=== PATIENT | female | born 1960 | race Caucasian/White ===

== ENCOUNTER → 2018-03-31 15:53 | Outpatient (CLI) | payer BC, SELFPAY ==
--- NOTE | 2018-03-31 16:01 | MM_ITS ---
MM Dig screening mamm BI w/CAD ORDERING PHYSICIAN : Bhargavi Han PATIENT AGE: 57 years GENDER: Female COMPARISON: August 2009, December 2011, April 2013 & 2014 INDICATION: Routine: SCREENING no hormones. No new complaints. Family history:. Paternal great grandmother with breast cancer TECHNIQUE: Standard CC and MLO images were obtained. R2 CAD reviewed. FINDINGS: . Diffuse fatty change with Low-density breast bilaterally. No suspicious nor dominant mass. No suspicious calcifications . No architectural distortion. RIGHT BREAST:No significant new findings Spherical dense benign calcification the medial right breast LEFT BREAST:No new areas of significant concern. Overlapping vessel seen at inferior left breast appear to account for appearance here. IMPRESSION: . . No new findings of significant concern. Overall Stable bilateral mammogram Bilateral follow-up in one year recommended. BI-RADS Category: 2 Benign Finding(s) RECOMMENDED FOLLOW-UP: 1YR 1 YEAR FOLLOW-UP (A letter has been sent to the patient regarding results of the study.)
== END ==
PROVIDERS: PCP Nurse Practitioner Family; Visit Provider Nurse Practitioner Family
DX: Z12.31 Encounter for screening mammogram for malignant neoplasm of breast (principal)
CPT/HCPCS: 77067

== ENCOUNTER → 2019-10-06 09:40 | Outpatient (CLI) | payer BC, SELFPAY | PROVIDERS: PCP Family Medicine; Visit Provider Nurse Practitioner Family | DX: Z03.818 Encounter for observation for suspected exposure to other biological agents ruled out (principal) | CPT/HCPCS: U0003 ==

== ENCOUNTER → 2020-03-26 09:39 | Outpatient (CLI) | payer BC, SELFPAY ==
--- NOTE | 2020-03-26 09:41 | MM_ITS ---
PROCEDURE: MM DIG SCREENING MAMM BI W/CAD Referring Doctor: Kristina Guajardo Patient Age:59Y CLINICAL INDICATION: SCREENING 59-year-old. No hormones but no new complaints Family history paternal grandmother with breast cancer COMPARISON: MG MM MOBILE MAMMO DIGITAL SCREEN W CAD NAKUL from 04/26/2013 MG MM MOBILE MAMMO DIGITAL SCREEN W CAD NAKUL from 04/25/2014 MG DMDB DIG MAMM-DX NAKUL from 05/03/2015 MG SCBI MM Dig screening mamm BI w/CAD from 03/31/2018 TECHNIQUE: Standard CC and MLO images were obtained. R2 CAD reviewed. Bilateral digital breast tomosynthesis included. Additional nipple profile view left breast included FINDINGS: . Low-density breast with generalized fatty replacement.-. Low-density breast facilitate mammography screening. No new areas of significant concern either breast, no dominant or suspicious mass. No suspicious calcifications. CAD highlights no areas of significant concern either. Dense benign-appearing calcifications again seen medial right breast suspect related to a collapsed oil cyst No significant new features right nor left breast IMPRESSION: Stable mammogram with no new areas of concern. . Low-density breast/generalized fatty replacement . Bilateral follow-up 1 year recommended BI-RAD Category: 1 Negative FOLLOW-UP: 1YR 1 Year Follow-up (A letter has been sent to the patient regarding results of the study.) Dictated by: Ej Frausto MD 03/27/2020 10:10 Ej Frausto MD in [place] 03/27/2020 10:10
== END ==
PROVIDERS: PCP Family Medicine; Visit Provider Family Medicine
DX: Z12.31 Encounter for screening mammogram for malignant neoplasm of breast (principal)
CPT/HCPCS: 77063; 77067

== ENCOUNTER → 2020-04-25 10:00 | Outpatient (CLI) | payer BC, SELFPAY ==
--- NOTE | 2020-04-25 10:06 | US_ITS ---
PROCEDURE: US EXTREMITY RT LIMITED CLINICAL INDICATION: LUMP OF SKIN OF BOTH EXTREMITIES COMPARISON: No exams were available for comparison FINDINGS: Ultrasound is performed palpable areas in the right forearm and upper humerus as well as the left anterior forearm upper humerus.. The areas imaged show mostly homogeneous echogenicity consistent with fatty tissue/lipomas. No cystic lesions or other types of masses evident. IMPRESSION: Multiple bilateral palpable areas are interrogated with ultrasound in the arm and forearm consistent with multiple lipomas or prominent fatty tissue Dictated by: Colton Flores MD 04/25/2020 15:26 Colton Flores MD in [place] 04/25/2020 15:26
== END ==
PROVIDERS: PCP Family Medicine; Visit Provider Nurse Practitioner Family
DX: R22.33 Localized swelling, mass and lump, upper limb, bilateral (principal)
CPT/HCPCS: 76882

== ENCOUNTER → 2020-05-14 12:43 | Outpatient (CLI) | payer BC, SELFPAY ==
--- NOTE | 2020-05-14 12:43 | CA_ITS ---
APPROVED REPORT EXAM: Comprehensive 2D, Doppler, and color-flow Echocardiogram Program Evaluation Consultant: Millie Cortes RT(R) Ht: 5 ft 6 in Wt: 298lbs BSA: 2.37 BP: 138/84 mmHg Indications: ex smoker, palpitations, HTN, DM, SOB, hyperlipidemia, palpitations, SARAH 2D Dimensions LVOT 2.16 cm (M/F) 1.5-2.5 LVEF (Allen's) 67.00 % F: 54 - 74 LV Volume 125.00 mL F: 46 - 106 LV Volume Index 52.74 mL/m2 F: 29 - 61 M-Mode Dimensions RVDd 3.22 cm (0.9-2.6) LA Diam 4.09 cm (1.9-4.0) LVDd 4.71 cm (3.5-5.7) Ao Diam 2.94 cm (2.0-3.7) LVDs 3.61 cm (3.5-5.7) IVSd 0.64 cm (0.6-1.1) PWd 0.85 cm (0.6-1.1) EF (Teich) 46.70% FS 23.40% EDV (Teich) 102.90 mL ESV (Teich) 54.80 mL LV Diastology E Decel Time 273.00 (160-240 msec) E/A Ratio 1.1 MED E' 9.30 (< 7 cm/sec) E'/MED E' Ratio 9.98 (>14) LAT E' 12.10 (<10 cm/sec) E/LAT E' Ratio 7.67 (>14) Mitral Valve MV E Max Julio. 93.00 (40-130 cm/s) MV A Velocity 88.00 (40-130 cm/s) E/A Ratio 1.05 MV Decel. Time 273.00 (160-240 ms) MV PHT 80.00 ms Tricuspid Valve TR P. Velocity 239.00 cm/s RAP Estimate 10.00 mmHg RVSP 32.90 mmHg Left Ventricle Left atrium is mildly enlarged, left ventricle is normal size, mild concentric left ventricular hypertrophy, visually estimated ejection fraction 55% with no regional wall motion abnormality, grade 1 diastolic dysfunction seen without tissue Doppler evidence of raise left atrial pressure. Right Ventricle Right atrium and right ventricle are normal size and contractility. Aortic Valve Aortic valve is minimally thickened and fibrosed, there is no aortic stenosis or aortic insufficiency. Mitral Valve Mitral valve is grossly normal, there is trace mitral regurgitation. Tricuspid Valve Tricuspid grossly normal, there is trace tricuspid regurgitation, tricuspid regurgitation jet velocity is inadequate for calculation of the right ventricular systolic pressure. Pulmonic Valve Pulmonic valve is poorly visualized. Great Vessels Aortic root is normal size. Pericardium No significant pericardial effusion noted. Conclusion 1. Mild biatrial enlargement, normal left ventricular size, mild concentric left ventricular hypertrophy, visually estimated ejection fraction 55% with no regional wall motion abnormality, grade 1 diastolic dysfunction seen without tissue Doppler evidence of raise left atrial pressure. 2. Trace mitral and tricuspid regurgitation. 3. No significant pericardial effusion noted. Electronically signed by : Leonardo Segal, 05/14/2020 22:08:09
== END ==
PROVIDERS: PCP Family Medicine; Visit Provider Internal Medicine Cardiovascular Disease
DX: R06.02 Shortness of breath (principal)
CPT/HCPCS: 93306

== ENCOUNTER 2021-03-22 09:37 | Emergency (ER) | payer BC, SELFPAY ==
[2021-03-22 10:26] VITALS: BP 137/88; PULSE 88; RESP 19; TEMP 37.3; O2SAT 96; BMI 46.3
--- NOTE | 2021-03-22 10:31 | HMH.EDUTC ---
[facility] [place] Clinical Impression: Bronchitis Disposition: Home, Self-Care Condition on Discharge: Good Instructions: Acute Bronchitis, DI for Acute Bronchitis Additional Instructions: Tylenol and ibuprofen as needed for pain or fever Humidifier/vaporizer/hot steamy shower Follow-up with primary care wednesday Follow-up immediately in the ER of the [facility] for new or worsening symptoms or no noticeable improvement over the next 48-72 hours. Stop smoking Inhaler every 4-6 hours as needed. Should help open airways improved cough, wheezing, shortness of breath Start steroids tomorrow. Helps with inflammation therefore coughing and wheezing. Follow directions on package. Prescriptions: Albuterol Sulfate [Albuterol Sulfate Hfa] 6.7 gm IH Q6 PRN 14 Days #1 each PRN Reason: Wheezing Transmission Status: [facility] predniSONE [Prednisone 20mg Tab] 20 mg PO BID #10 tab Transmission Status: Pending to [facility] Referrals: Bhargavi Han APRN [Primary Care Provider] - Time of Disposition: 10:39 Medical Decision Making - Angel Inquiry Pt receiving controlled substance: No Vital Signs: 03/22/21 10:26 Temperature 99.1 F Temperature Source Oral Pulse Rate [Left] 88 Respiratory Rate 19 Blood Pressure [Right Arm] 137/88 Blood Pressure Mean [Right Arm] 104 02 Sat by Pulse Oximetry 96 [facility] [place] HPI - General Chief complaint: Urgent Treatment Center Stated complaint: congestion, cough Time Seen by Provider: 03/22/21 10:32 Mode of Arrival: Ambulatory Source of Information: Patient Limitations: No Limitations Description of Symptoms (Recalled from Triage Doc. by RN): pt c/o a cough and congestion since yesterday. HEENT Symptoms (Recalled from RN notes): Yes (congetsion) Resp Symptoms (Recalled from RN notes): Yes (cough) Skin Symptoms (Recalled from RN notes): No MS Symptoms (Recalled from RN notes): No Functional Status (Recalled from RN notes): wnl - History of Present Illness Provider Complaint: 60 yr old female presents with c/o a cough with clear sputum,wheezing and congestion since yesterday - Related Data Home Medications Medication Instructions Recorded Confirmed cetirizine 10 mg tablet 10 mg PO DAILY PRN 04/25/20 11/21/20 cholecalciferol (vitamin D3) 25 25 mcg PO DAILY 04/25/20 11/21/20 mcg (1,000 unit) capsule pravastatin 40 mg tablet 40 mg PO DAILY 05/23/20 11/21/20 venlafaxine 75 mg capsule,extended 75 mg PO DAILY cap 05/23/20 11/21/20 release 24 hr empagliflozin 10 mg tablet 10 mg PO DAILY tab 11/21/20 11/21/20 mecobalamin (vitamin B12) 1,000 1,000 mcg PO DAILY 11/21/20 11/21/20 mcg chewable tablet Previous Rx's Medication Instructions Recorded aspirin 81 mg tablet,delayed 81 mg PO DAILY #100 tab 04/25/20 release losartan 50 mg-hydrochlorothiazide 1 tab PO DAILY #90 tab 04/25/20 12.5 mg tablet omeprazole 40 mg capsule,delayed 40 mg PO DAILY #30 cap 05/23/20 release metoprolol succinate 25 mg See Rx Instructions .ROUTE 07/25/20 tablet,extended release 24 hr .COMPLEX #90 tab Albuterol Sulfate [Albuterol 6.7 gm IH Q6 PRN 14 Days #1 each 03/22/21 Sulfate Hfa] predniSONE [Prednisone 20mg 20 mg PO BID #10 tab 03/22/21 Tab] Allergies Allergy/AdvReac Type Severity Reaction Status Date / Time Sulfa (Sulfonamide Allergy Unknown Verified 11/21/20 10:03 Antibiotics) [SULFA (SULFONAMIDE ANTIBIOTICS)] - Worker's Comp Is this a Worker's Comp case?: No H History - Hepatitis A Screen Drug use history?: No High risk sexual behaviors?: No History of sexually transmitted infection?: No Currently employed?: No Childcare worker?: No Do you have indoor plumbing?: Yes Do you have electricity?: Yes Attestation statement:: This patient has been screened for Hepatitis A risk factors. I have reviewed the patient's past medical history: Yes Medical History: Reports:: Depression, Diabetes Mellitus Type 2, Hyperl
[2021-03-22 10:43] VITALS: BP 137/88; PULSE 88; RESP 19; TEMP 37.3
== END 2021-03-22 11:24 | disposition home or self-care (01) ==
PROVIDERS: Emergency Provider Nurse Practitioner Family; PCP Nurse Practitioner Family
DX: J20.9 Acute bronchitis, unspecified (principal); E11.9 Type 2 diabetes mellitus without complications; E78.5 Hyperlipidemia, unspecified; I10 Essential (primary) hypertension; Z87.891 Personal history of nicotine dependence
CPT/HCPCS: 96372; 99202; G0463

== ENCOUNTER 2021-07-04 10:20 | Emergency (ER) | payer BC, SELFPAY ==
[2021-07-04 11:00] VITALS: BP 148/88; PULSE 66; RESP 18; TEMP 36.7; O2SAT 98; BMI 48.1
--- NOTE | 2021-07-04 11:08 | HMH.EDUTC ---
[facility] [place] Clinical Impression: Otitis media Qualifiers: Otitis media type: unspecified Laterality: right Qualified Code(s): H66.91 - Otitis media, unspecified, right ear Disposition: Home, Self-Care Condition on Discharge: Good Instructions: Middle Ear Infection, Cefdinir Additional Instructions: Take medication as prescribed Aquaphor may help with eczema however do not place inside your ears may use externally Follow up with your Family Doctor Over the counter topical hydrocortisone cream may help with bug bites that itch Return if needed Prescriptions: Cefdinir [Omnicef 300mg Capsule] 300 mg PO BID 7 Days #14 cap Transmission Status: Pending to [facility] Referrals: Kristina Guajardo MD [Primary Care Provider] - As needed Time of Disposition: 11:15 Medical Decision Making - Angel Inquiry Pt receiving controlled substance: No Angel was queried for this patient: No Vital Signs: 07/04/21 11:00 Temperature 98.1 F Temperature Source Oral Pulse Rate [Left] 66 Respiratory Rate 18 Blood Pressure [Right Arm] 148/88 H Blood Pressure Mean [Right Arm] 108 02 Sat by Pulse Oximetry 98 [facility] [place] HPI - General Stated complaint: right ear pain, left ankle swelling Time Seen by Provider: 07/04/21 11:09 Mode of Arrival: Ambulatory Source of Information: Patient Limitations: No Limitations Description of Symptoms (Recalled from Triage Doc. by RN): pt c/o of pain nd pressure in right ear. and a small insect bite on top of left ankle HEENT Symptoms (Recalled from RN notes): Yes Resp Symptoms (Recalled from RN notes): No Skin Symptoms (Recalled from RN notes): No MS Symptoms (Recalled from RN notes): No Functional Status (Recalled from RN notes): wnl - History of Present Illness Provider Complaint: Patient states that she has been having pain and pressure in her right ear States that has been going on about a week and continued to get worse State that today she also noticed a small bite on the top of her left foot that she wanted looked at too - Related Data Home Medications Medication Instructions Recorded Confirmed cetirizine 10 mg tablet 10 mg PO DAILY PRN 04/25/20 11/21/20 cholecalciferol (vitamin D3) 25 25 mcg PO DAILY 04/25/20 11/21/20 mcg (1,000 unit) capsule pravastatin 40 mg tablet 40 mg PO DAILY 05/23/20 11/21/20 venlafaxine 75 mg capsule,extended 75 mg PO DAILY cap 05/23/20 11/21/20 release 24 hr empagliflozin 10 mg tablet 10 mg PO DAILY tab 11/21/20 11/21/20 mecobalamin (vitamin B12) 1,000 1,000 mcg PO DAILY 11/21/20 11/21/20 mcg chewable tablet Previous Rx's Medication Instructions Recorded aspirin 81 mg tablet,delayed 81 mg PO DAILY #100 tab 04/25/20 release losartan 50 mg-hydrochlorothiazide 1 tab PO DAILY #90 tab 04/25/20 12.5 mg tablet omeprazole 40 mg capsule,delayed 40 mg PO DAILY #30 cap 05/23/20 release metoprolol succinate 25 mg See Rx Instructions .ROUTE 07/25/20 tablet,extended release 24 hr .COMPLEX #90 tab Albuterol Sulfate [Albuterol 6.7 gm IH Q6 PRN 14 Days #1 each 03/22/21 Sulfate Hfa] predniSONE [Prednisone 20mg 20 mg PO BID #10 tab 03/22/21 Tab] Cefdinir [Omnicef 300mg Capsule] 300 mg PO BID 7 Days #14 cap 07/04/21 Allergies Allergy/AdvReac Type Severity Reaction Status Date / Time Sulfa (Sulfonamide Allergy Unknown Verified 07/04/21 11:06 Antibiotics) [SULFA (SULFONAMIDE ANTIBIOTICS)] - Worker's Comp Is this a Worker's Comp case?: No [facility] History - Hepatitis A Screen Attestation statement:: This patient has been screened for Hepatitis A risk factors. I have reviewed the patient's past medical history: Yes Medical History: Reports:: Depression, Diabetes Mellitus Type 2, Hyperlipidemia, Hypertension, Palpitations Other Medical History: Reports: Sinus Problems Comment: SARAH Other Surgeries: Yes: Cardiac Catheterization, Colonoscopy, , Other Amputation: No Fractures: No - Social Hist
[2021-07-04 11:17] VITALS: BP 148/88; PULSE 66; RESP 18; TEMP 36.7
== END 2021-07-04 11:21 | disposition home or self-care (01) ==
PROVIDERS: Emergency Provider Nurse Practitioner Family; PCP Family Medicine
DX: H66.91 Otitis media, unspecified, right ear (principal); M25.472 Effusion, left ankle
CPT/HCPCS: 99212; G0463